=== PATIENT | male | born 1970 | race Caucasian/White ===

== ENCOUNTER 2018-09-23 18:37 | Inpatient (IN) ==
[2018-09-23 19:37] LABS: BASO# 0.03 X1000 (0.0-0.2); BASO% 0.3 % (0.0-0.8); EOS# 0.13 X1000 (0.0-0.7); EOS% 1.3 % (0.0-10.0); HEMATOCRIT 45.5 % (42.0-52.0); HEMOGLOBIN 15.7 g/dL (14.0-18.0); IMM GRAN# 0.02 X1000 (0.0-0.04); IMM GRAN% 0.2 % (0.0-0.5); LYMPH# 1.62 X1000 (1.2-3.4); LYMPH% 16.4 % (20.5-51.1); MCH 30.3 PG (27-31); MCHC 34.5 g/dL (33-37); MCV 87.7 FL (81-99); MONO% 7.1 % (1.7-9.3); MPV 9.9 FL (7.4-10.4); NEUT# 7.38 X1000 (1.4-6.5); NEUT% 74.7 % (42.2-75.2); PLT 195 X1000 (130-400); RBC 5.19 XMIL (4.7-6.1); RDW 11.7 % (11.5-14.5); WBC 9.88 X1000 (4.8-10.8)
[2018-09-23 19:56] LABS: AGAP 9; ALBUMIN 4.3 g/dL (3.5-5.0); ALKALINE PHOSPHATASE 189 U/L (32-122); AMYLASE 879 U/L (20-200); BUN 18 mg/dL (8-22); CALCIUM 9.3 mg/dL (8.8-10.2); CHLORIDE 100 mmol/L (98-107); CK PROFILE 259 U/L (24-204); COSMO 285; CREATININE 0.9 mg/dL (0.7-1.2); ESTIMATED GFR > 60; GLUCOSE 197 mg/dL (70-104); GOT 23 U/L (10-34); GPT 28 U/L (10-44); POTASSIUM 4.3 mmol/L (3.5-5.1); SODIUM 139 mmol/L (136-145); TCO2 30 mmol/L (25-35); TOTAL BILIRUBIN 0.15 mg/dL (0.20-1.00); TOTAL PROTEIN 6.4 g/dL (6.3-8.3)
[2018-09-23 20:06] LABS: LIPASE 1920 U/L (13-60)
[2018-09-23 20:17] LABS: CK INDEX 3.5 (0.0-2.5); CK-MB 9.14 ng/mL (0.0-5.0)
[2018-09-23] MEDS ORDERED: ZOFRAN IV ONE (20:27)
[2018-09-23] MEDS ORDERED: MORPHINE IV ONE (20:27)
[2018-09-23] MEDS ORDERED: ZOFRAN ONE (20:40)
--- NOTE | 2018-09-23 21:30 | Diag Imaging Result Doc PS360 ---
EXAM: CT ABD/PELVIS W/IV CONT ONLY - 09/23/2018 HISTORY: epigastric pain, elev pancreatic enzymes TECHNIQUE: CT abdomen/pelvis with intravenous contrast. No oral contrast administered per request of the referring provider. COMPARISON: None. FINDINGS: The lung bases appear clear except for mild dependent atelectasis. There are no substantial abnormalities of the liver, spleen, or adrenal glands identified. There are mild peripancreatic inflammatory changes which are most prominent about the tail the pancreas and are compatible with acute pancreatitis. There is no substantial pancreatic necrosis identified. There is no pseudocyst identified. There are no calcified gallstones or pericholecystic inflammation identified. There is a 1.3 cm low-density lesion at the anterior lower left kidney, which has density measurement on the borderline between cystic and solid. The bilateral kidneys otherwise enhance homogeneously. There is apparent 5 mm nonobstructing stone at the upper left kidney. There is no hydronephrosis. There are nonspecific small retroperitoneal lymph nodes. The stomach is moderately distended with fluid and air. There is slight distention of mid small bowel, which may relate to mild ileus. The appendix is not well visualized, but there is no pericecal inflammation identified. There is a moderate amount retained fecal debris in the right colon. There is no free air, substantial free fluid, or abscess identified. There is a tiny fat-containing umbilical hernia. There are prostatic calcifications noted. There are substantial degenerative changes of the right L5-S1 facet noted. IMPRESSION: Mild peripancreatic inflammatory changes compatible with acute pancreatitis. No substantial pancreatic necrosis. No pseudocyst. Moderate distention of stomach with fluid and air. Mild distention of mid small bowel, which may relate to mild ileus. 5 mm nonobstructing stone in upper left kidney. 1.3 cm low-density lesion at lower left kidney. Follow-up renal ultrasound is recommended. This exam was performed using automated exposure control, adjustment of mA or kV according to patient size, and/or use of iterative reconstruction technique. Electronically signed by Jose Rodriguez 09/23/2018 9:28 PM
[2018-09-23] MEDS ORDERED: NS 1,000 ML IV ONE (22:12)
--- NOTE | 2018-09-23 22:27 | PROVIDER DOCUMENTATION ---
This chart was entered by Toya Mello Scribe, acting as scribe for Tor Schwab MD. HPI-Abdominal Pain/GI Problem - General Chief Complaint: Abdominal Pain Stated Complaint: SEVERE UPPER ABDOMINAL PAIN Time Seen by Provider: 09/23/18 19:10 Source: patient Allergies/Adverse Reactions: Patient Allergies Allergy/AdvReac Type Severity Reaction Status Date / Time No Known Allergies Allergy Verified 09/23/18 19:27 Home Medications: Home Medication List Medication Instructions Recorded Confirmed Last Taken Type NK [No Home Medications] 09/23/18 09/23/18 Unknown History - History of Present Illness-ABD Nature of Presenting Problems: PT presenting to ED w/ abd pain that he sts radiates to back. He says that it feels like he has a knot in his stomach. denies any n/v/d or c/p Abdominal Pain Onset Location: reports: epigastric Pain Radiation: reports: back Quality of Pain: reports: other ("knot" in stomach) Severity in ED: reports: moderate Onset/Duration: reports: just prior to arrival Timing: reports: still present Activities at Onset: reports: none Exposure to sick contacts?: No Modifying Factors: improves with: nothing Associated Symptoms: reports: back/neck pain. denies: chest pain, fever/chills , shortness of breath, vomiting Review of Systems - Adult - REVIEW OF SYSTEMS - ADULT Constitutional: reports: no symptoms reported. denies: chills, fever Eyes: reports: no symptoms reported Ears, Nose, Mouth & Throat: reports: no symptoms reported Cardiovascular: reports: no symptoms reported Respiratory: reports: no symptoms reported. denies: cough, shortness of breath , wheezing Gastrointestinal: reports: abdominal pain. denies: diarrhea, nausea, vomiting Genitourinary: reports: no symptoms reported Musculoskeletal: reports: no symptoms reported Integumentary: reports: no symptoms reported Neurological: reports: no symptoms reported. denies: dizziness/vertigo, headache/migraines Psychiatric: reports: no symptoms reported Endocrine: reports: no symptoms reported Hematologic/Lymphatic: reports: no symptoms reported Allergic/Immunologic: reports: no symptoms reported Past History - Adult - PAST MEDICAL HISTORY-ADULT Review of Records: reports: Old Records Reviewed, Nursing Assessment Review, Medications Reviewed, Social history reviewed & non-contributory. - SOCIAL HISTORY Smoking: denies, non-smoker Substance Use: none/never Alcohol Use Frequency: never Living Situation: family Physical Exam-General - CONSTITUTIONAL General Appearance: appears well, alert, mild distress - EYES Eyes: PERRL/EOMI - HEAD, EARS, NOSE, MOUTH & THROAT HENMT: moist mucous membranes, normal ENT inspection, TMs normal, pharynx normal - NECK Neck: non-tender, full range of motion, supple, normal inspection - RESPIRATORY Respiratory: chest non-tender, lungs clear, normal breath sounds - CARDIOVASCULAR Cardiovascular: regular rate, rhythm - GASTROINTESTINAL (ABDOMEN) Abdominal Exam: normal bowel sounds, soft, tenderness (some epigastric tenderness) - LYMPHATIC Lymphatic: no adenopathy - MUSCULOSKELETAL Back Exam: normal inspection, no CVA tenderness, no vertebral tenderness Extremity: normal range of motion, non-tender, normal gait, normal inspection - SKIN Integumentary: normal color, warm/dry - NEUROLOGIC Neurologic: grossly normal - PSYCHIATRIC Psych/Mental Status: normal mood/affect, normal thought content, normal thought process, oriented x 3 Progress - PLAN OF CARE/RESULTS Progress/Plan/Lab Results: Vital Signs - 8 hr 09/23/18 18:58 Temperature 98.4 F Pulse Rate 69 Respiratory Rate 18 Blood Pressure 120/74 O2 Sat by Pulse Oximetry 100 Result Diagrams: 09/23/18 19:03 09/23/18 19:03 - EKG 1 Time of EKG reading by physician:: 19:10 EKG Read and Signed by:: Tor Schwab EKG Interpretation (*Must complete 3 of following elements*): Normal (sinus bradycardia, otherwise normal ECG) Rate: 55 Rhythm: sinus bradycardia - CONSULTS/PCP/HOSPITALIST Notification #1 *Consult/PCP/Hospitalist*: Dr. Mera Time Discussed: 22:18 #2 Consult: Dr. Cheatham Time Discussed: 22:19 Reason/Comments: Agreed to see in ED and admit Consult Disposition: Will see in ED, Admit Departure - Departure Date of Disposition Decision: 09/23/18 Time of Disposition Decision: 22:15 DIAGNOSIS: Pancreatitis, acute Qualifiers: Pancreatitis type: unspecified pancreatitis type Acute pancreatitis complication: no infection or necrosis Qualified Code(s): K85.90 - Acute pancreatitis without necrosis or infection, unspecified Disposition: ADMITTED INPATIENT 09 Certified Medical Emergency: Emergent Condition: Stable Referrals and Follow-Ups: None,PCP [Primary Care Provider] - - Critical Care Note This patient required my direct & personal management of CC.: Yes Attestation - Physician/ JOSEPH Attestation Patient care was provided by Advanced Practice Provider:: No The physician spent face to face time with patient:: Yes Advanced Practice Provider documentation review:: Supervising physician onsite and consulted in the evaluation and care of this patient. The physician did have a face to face encounter with the patient. This chart was documented by the indicated scribe, (Toya Mello, Lore) and accurately reflects the services I performed and decisions made by me, Tor Schwab MD, as attested by the provider's signature.
[2018-09-24] MEDS: ZOFRAN IV PRN ×2 (01:08→05:32)
[2018-09-24] MEDS: LOVENOX SUBQ SCH ×2 (01:10→21:26)
[2018-09-24] MEDS: SODIUM CHLORIDE 0.9% INJ SCH (01:11)
[2018-09-24] MEDS: PROTONIX IV SCH ×2 (01:11→21:26)
[2018-09-24] MEDS: MORPHINE IV PRN ×2 (01:12→05:31)
[2018-09-24 04:39] LABS: URINE SOURCE CLEAN CATCH
[2018-09-24 04:42] LABS: BILIRUBIN URINE NEGATIVE (NEGATIVE); BLOOD URINE NEGATIVE (NEGATIVE); COLOR ORANGE; GLUCOSE URINE TRACE mg/dL (NEGATIVE); KETONE URINE NEGATIVE (NEGATIVE); LEUKOCYTES URINE NEGATIVE (NEGATIVE); NITRITE URINE NEGATIVE (NEGATIVE); PH URINE 7.5; PROTEIN URINE 30 mg/dL (NEGATIVE); SP GRAVITY URINE > 1.050; TURBIDITY URINE TURBID (CLEAR); UROBILINOGEN URINE NORMAL (NORMAL)
[2018-09-24 04:44] LABS: UR EPITHELIAL CELLS <10 /HPF (<10); URINE BACTERIA NEGATIVE /HPF; URINE RBC <10 /HPF (<10); URINE WBC <10 /HPF (<10)
[2018-09-24] MEDS ORDERED: ATIVAN IV PRN (05:30)
[2018-09-24 06:25] LABS: BASO# 0.01 X1000 (0.0-0.2); BASO% 0.1 % (0.0-0.8); EOS# 0.06 X1000 (0.0-0.7); EOS% 0.7 % (0.0-10.0); HEMATOCRIT 44.2 % (42.0-52.0); HEMOGLOBIN 14.9 g/dL (14.0-18.0); LYMPH# 2.14 X1000 (1.2-3.4); LYMPH% 23.6 % (20.5-51.1); MCH 29.9 PG (27-31); MCHC 33.7 g/dL (33-37); MCV 88.6 FL (81-99); MONO# 0.79 X1000 (0.11-0.59); MONO% 8.7 % (1.7-9.3); MPV 10.1 FL (7.4-10.4); NEUT# 6.06 X1000 (1.4-6.5); NEUT% 66.9 % (42.2-75.2); PLT 177 X1000 (130-400); RBC 4.99 XMIL (4.7-6.1); WBC 9.06 X1000 (4.8-10.8)
[2018-09-24 06:45] LABS: AGAP 8; BUN 13 mg/dL (8-22); CALCIUM 8.7 mg/dL (8.8-10.2); CHLORIDE 101 mmol/L (98-107); COSMO 271; CREATININE 0.7 mg/dL (0.7-1.2); ESTIMATED GFR > 60; GLUCOSE 119 mg/dL (70-104); POTASSIUM 4.1 mmol/L (3.5-5.1); SODIUM 135 mmol/L (136-145); TCO2 26 mmol/L (25-35)
[2018-09-24 07:26] LABS: HEMOGLOBIN A1C 5.5 % (4.8-6.0)
[2018-09-24 07:28] LABS: CHOLESTEROL 125 mg/dL (0-200); HDL 47 mg/dL (35-55); LDL 58 mg/dL; TRIGLYCERIDES 99 mg/dL (39-160); VLDL 20 mg/dL
--- NOTE | 2018-09-24 08:06 | HISTORY AND PHYSICAL ---
CHIEF COMPLAINT: Abdominal pain. HISTORY OF PRESENT ILLNESS: Mr. Nelson is a 48-year-old male who comes into the Emergency Room with right upper quadrant pain and epigastric pain. He states that it radiates to his back and it feels like he has a knot in his stomach. He denies any chest pain, nausea, vomiting, diarrhea, fever, chills, shortness of breath, or any associated symptoms. He has no real medical history. He is a daily alcohol user. He drinks 3 to [address] of his abdomen and pelvis showed a mild peripancreatic inflammation most prominent at the tail of the pancreas compatible with acute pancreatitis. The gallbladder was within normal limits. There was also a 1.3 cm low density lesion at the anterior lower kidney. It had borderline density between cystic and solid. Also, there was distention of the stomach with fluid and air related to possible mild ileus. On his laboratory data he also was noted to have elevated amylase and lipase at 879 and 1920 respectively. He will be admitted for further evaluation and treatment. PAST MEDICAL HISTORY: Denies. PREVIOUS SURGICAL HISTORY: He states that 25 years ago he had either a partial thyroid removal or a goiter removal. I was unable to tell from his description. ALLERGIES: No known drug allergies. HOME MEDICATIONS: No home medications. SOCIAL HISTORY: Three to four beers daily. He builds cabinets for a living. He lives with his . No tobacco or drug use. FAMILY HISTORY: His father had diabetes mellitus. REVIEW OF SYSTEMS: A 14 point review of systems was conducted with the patient and pertinent positives are listed above in the HPI. All other systems were reviewed and found to be negative. PHYSICAL EXAMINATION: VITAL SIGNS: Temp 98.4, pulse 57, respirations 12, blood pressure 120/82, and oxygen saturation 96% on room air. GENERAL: Pleasant 48-year-old male lying in the medical floor bed. He answers all questions appropriately. He is alert and oriented times 3. His is at the bedside and is very supportive. He is in no acute distress. HEENT: Head is atraumatic and normocephalic. Pupils are equal, round, and reactive to light. Extraocular eye movements are intact. Sclerae are anicteric. Conjunctivae are pink. Oral mucosa is moist. NECK: Supple. No JVD. No thyromegaly. Trachea is midline. No cervical lymphadenopathy. CARDIAC: S1 and S2 appreciated. No murmurs, gallops, or rubs. LUNGS: Clear to auscultation bilaterally. No rhonchi, wheezes, or rales. Symmetric rise and fall with respirations. ABDOMEN: Soft and nondistended. Tender in the right upper quadrant and epigastric area to palpation. No rebound tenderness. No rigidity. No guarding. Bowel sounds are present in all 4 quadrants and normoactive. No pulsatile mass or organomegaly. EXTREMITIES: No clubbing, cyanosis, or edema. Pedal pulses are 2+ bilaterally. GENITOURINARY: No bladder distention. Patient voids. Otherwise, deferred. NEUROLOGICAL: Alert and oriented times 3. No focal motor deficit. Otherwise, nonfocal examination. DIAGNOSTIC DATA: CT of the abdomen and pelvis showed mild peripancreatic inflammation compatible with acute pancreatitis. Moderate distention of the stomach with fluid and air. Mild distention of the mid small bowel which may be related to a mild ileus. A 1.3 cm low density lesion at the lower left kidney. Follow up renal ultrasound was recommended. LABORATORY DATA: CBC: Within normal limits. Chemistry panel: Within normal limits other than a glucose of 197. Amylase 879. Lipase 1920. Urine: Unremarkable. ASSESSMENT AND PLAN: 1. Acute pancreatitis, likely related to alcohol. Cessation of alcohol was gone over with the patient. Hold the patient n.p.o. Normal saline IV. Zofran as needed for nausea. Morphine as needed for pain. 2. Alcohol use and abuse. The patient states that he has never had withdrawals and has gone without drinking. We will order 1 mg of Ativan IV every 2 hours as needed for alcohol withdrawal. Alcohol withdrawal symptoms will be monitored by nursing. 3. Questionable lesion to left kidney. We will do a followup renal ultrasound. Defer to the primary team to follow up with this and consult if needed. Further recommendations per the patient's clinical course. Dictated by SOLA Stahl for Bill Cheatham MD cc: SOLA Stahl MD
--- NOTE | 2018-09-24 08:43 | Diag Imaging Result Doc PS360 ---
EXAM: US RENAL 1 (LIMITED)-LEFT HISTORY: 1.3 cm lesion low left kidney TECHNIQUE: Renal ultrasound COMPARISON: CT from 09/23/2018 FINDINGS: The right kidney measures 9.5 x 5.4 x 5.1 cm. Normal renal echotexture and cortical thickness. No renal stone or hydronephrosis. No renal mass. Urinary bladder is distended and is normal. The left kidney measures 10.6 x 5.5 x 5.0 cm. Normal renal echotexture and cortical thickness. No renal stones or hydronephrosis. Complex cyst in the lower left kidney measuring approximately 1.6 x 1.6 x 2.8 cm. There is an echogenic focus within it. CT demonstrates a small left renal stone. This is difficult to appreciate on the ultrasound. IMPRESSION: Complex left renal nodule with cystic and solid components. Electronically signed by Matthew Lima 09/24/2018 8:41 AM
--- NOTE | 2018-09-24 09:58 | PROGRESS NOTE ---
DATE: 09/24/2018 SUBJECTIVE: The patient was admitted early this morning. Apparently, he started having abdominal pain on evening and Wednesday it seemed to be worse, epigastric, radiating to his back. He does drink a couple of beers every day. He does not have any other medical problems that he knows of. No history of hypertriglyceridemia, hypercholesterolemia. A 48-year-old, who came to the emergency room with epigastric pain, actually left upper quadrant. It radiates to his back. It Feels like a knot in his stomach. His amylase was 879, lipase was 1920. The only significant history is 25 years ago he had a partial thyroid removal or goiter removal, so admitted with acute pancreatitis. Does have a history of alcohol. Ultrasound done this morning. He had an abdominal pelvic CT yesterday. Impression was mild peripancreatic inflammatory changes compatible with acute pancreatitis. No substantial pancreatic necrosis and no sign of pseudocyst. Had moderate distention of stomach. There is a 5 mm nonobstructing stone left kidney and a 1.3 cm low-density lesion in the lower left kidney. His ultrasound done this morning revealed complex left renal nodule with cystic and solid components. ASSESSMENT AND PLAN: 1. Acute pancreatitis, suspect alcohol-induced. Continue to hold, nothing by mouth. He requests to make the pain medicine as needed; he is not hurting as bad. Will check amylase and lipase again in the morning, liver enzymes. 2. Complex renal cyst. Aware. I think that is an incidental finding. cc: Harpreet Casillas MD
[2018-09-24] MEDS: NS 1,000 ML IV SCH (17:38)
[2018-09-24] MEDS: DILAUDID IV PRN ×2 (17:38→21:26)
[2018-09-25] MEDS: LOVENOX SUBQ SCH ×2 (00:06→22:52)
[2018-09-25] MEDS: PROTONIX IV SCH ×2 (00:07→22:52)
[2018-09-25] MEDS: DILAUDID IV PRN ×2 (02:08→05:48)
[2018-09-25] MEDS: NS 1,000 ML IV SCH ×2 (07:36→22:52)
--- NOTE | 2018-09-25 09:37 | PROGRESS NOTE ---
DATE: 09/25/2018 SUBJECTIVE: Mr. Nelson's epigastric and left upper quadrant pain is better. PHYSICAL EXAMINATION: Vital Signs: Temperature 98.0 degrees, pulse 75, respirations 20, blood pressure 120/75. HEENT: Pupils are equal and round. Lungs: Clear in all lung gutierrez. Cardiovascular Examination: Regular rhythm and rate without murmur S3. Abdomen: Soft, nondistended. Mild tenderness in the epigastric, left upper quadrant. Is and Os: Urine output was 1000 mL. ASSESSMENT AND PLAN: I am going to go ahead and repeat some more pancreatic enzymes this morning and advance him to a full liquid diet. I discussed that he will need to quit drinking alcohol together. I reviewed the results of the abdominal and pelvic CT. He also had a renal ultrasound. There is a 5 mm, nonobstructing stone in the left kidney. There is a 1.3 cm, low-density lesion in the lower left kidney. We did an ultrasound and renal ultrasound showed a complex left renal nodule with cystic and solid components. He has some discomfort in his right lower back which looks to be musculoskeletal. We will advance his diet and see how we do. cc: Harpreet Casillas MD
[2018-09-25 11:30] LABS: AMYLASE 280 U/L (20-200)
[2018-09-25 11:34] LABS: LIPASE 411 U/L (13-60)
[2018-09-25] MEDS: SODIUM CHLORIDE 0.9% INJ SCH (22:52)
[2018-09-26 06:14] LABS: BASO# 0.02 X1000 (0.0-0.2); BASO% 0.3 % (0.0-0.8); EOS# 0.09 X1000 (0.0-0.7); EOS% 1.1 % (0.0-10.0); HEMATOCRIT 48.2 % (42.0-52.0); HEMOGLOBIN 16.3 g/dL (14.0-18.0); LYMPH# 1.84 X1000 (1.2-3.4); LYMPH% 23.4 % (20.5-51.1); MCH 29.7 PG (27-31); MCHC 33.8 g/dL (33-37); MONO# 0.71 X1000 (0.11-0.59); NEUT% 66.2 % (42.2-75.2); PLT 196 X1000 (130-400); RBC 5.48 XMIL (4.7-6.1); RDW 11.9 % (11.5-14.5); WBC 7.86 X1000 (4.8-10.8)
[2018-09-26 06:59] LABS: AGAP 8; ALB/GLOB RATIO 1.6; ALBUMIN 4.1 g/dL (3.5-5.0); ALKALINE PHOSPHATASE 108 U/L (32-122); AMYLASE 144 U/L (20-200); BUN 10 mg/dL (8-22); CALCIUM 9.4 mg/dL (8.8-10.2); CHLORIDE 99 mmol/L (98-107); COSMO 274; CREATININE 1.1 mg/dL (0.7-1.2); ESTIMATED GFR > 60; GLUCOSE 118 mg/dL (70-104); GOT 18 U/L (10-34); GPT 27 U/L (10-44); LIPASE 185 U/L (13-60); MAGNESIUM 2.1 mg/dL (1.5-2.7); POTASSIUM 4.5 mmol/L (3.5-5.1); SODIUM 137 mmol/L (136-145); TCO2 30 mmol/L (25-35); TOTAL BILIRUBIN 0.52 mg/dL (0.20-1.00); TOTAL PROTEIN 6.6 g/dL (6.3-8.3)
[2018-09-26 08:50] VITALS: BP 132/97
--- NOTE | 2018-09-26 11:45 | EKG Report ---
Test Performed on : 09/23/2018 7:08:04 PM Test Reason : ED. NO order in [place] Blood Pressure : / mmHG Vent. Rate : 055 BPM Atrial Rate : 055 BPM P-R Int : 144 ms QRS Dur : 084 ms QT Int : 444 ms P-R-T Axes : 021 050 024 degrees QTc Int : 424 ms Sinus bradycardia. Otherwise normal ECG No previous ECGs available Unconfirmed Result
--- NOTE | 2018-09-26 13:15 | DISCHARGE SUMMARY ---
ADMISSION DATE: 09/21/2018 DISCHARGE DATE: 09/26/2018 PRIMARY CARE PHYSICIAN: He has no primary care physician. HOSPITAL COURSE: Presented with abdominal pain. This is a 48-year-old, white male who came to the emergency room with right upper quadrant pain and epigastric pain. He stated that it radiated to his back. He feels like he has a knot in his stomach. Denied any chest pain, nausea, vomiting, diarrhea, fever, chills, shortness of breath, or any associated symptoms. He has had no real medical history. He does drink beer, 3 or [address] of the abdomen and pelvis showed mid peripancreatic inflammation, most prominent at the tail of the pancreas, compatible with acute pancreatitis. His lipase and amylase were markedly elevated. Gallbladder was within normal limits. He also had a 1.3 cm density and lesion in the anterior lower kidney. Had borderline densely between cystic and solid. Also, there was distention of his stomach and fluid related to possible mild ileus. Laboratory changes or findings showed elevated amylase and lipase. Amylase was 879 and lipase was 1920. He was held NPO. Given some fluids, antiemetics, and pain medicine. His pain seemed to subside. Did not find any evidence of hypertriglyceridemia. His cholesterol profile, total cholesterol was 125, his LDL was 58, HDL was 47. Calcium 8.7, creatinine 0.7. Showed continued improvement. His amylase and lipase came down. Was able to advance his diet to a soft diet and he was requesting to go home. I want him to find a primary care physician. The results of the CT scan were discussed. He had a renal ultrasound. He has a complex left renal nodule, cystic and solid components. The complex cyst measured 1.6 x 1.6 x 2.8. I want him to follow up with his primary care physician and I recommended a followup renal ultrasound in probably in 2 to 3 months. No sign of renal dysfunction. DISCHARGE MEDICATIONS: He will have really no medications. cc: Harpreet Casillas MD
== END 2018-09-26 13:20 | disposition home or self-care (01) | DRG 439 ==
LOC: ED 18:37 → 4N 22:55 → SUATTDRO 22:55
PROVIDERS: ATTEND Emergency Medicine
CPT/HCPCS: 74177; 76775; 80048; 80053; 80061; 81001; 82150; 82550; 82553; 83036; 83690; 83735; 84443; 84484; 85025; 93005; 96372; 96374; 96375; 96376; 99285; C9113; J1170; J1650; J2270; J2405; J7030; Q9967; S0164